=== PATIENT | female | born 2000 ===

== ENCOUNTER 2025-07-22 17:00 | Emergency (ER) | payer SELFPAY ==
[2025-07-22 17:02] VITALS: BP 130/84; PULSE 125; RESP 16; TEMP 36.8; O2SAT 100
[2025-07-22 17:03] VITALS: BMI 27.2
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
[2025-07-22 17:49] VITALS: PULSE 116; O2SAT 99
--- NOTE | 2025-07-22 17:59 | PC.NURSE ---
PT SIGNED OUT AMA
== END 2025-07-22 18:00 | disposition left against medical advice (07) ==
LOC: SERX 18:08
PROVIDERS: Emergency Provider Emergency Medicine
DX: M54.50 Low back pain, unspecified (principal); V43.52XA Car driver injured in collision with other type car in traffic accident, initial encounter; Z53.29 Procedure and treatment not carried out because of patient's decision for other reasons
CPT/HCPCS: 81025; 99281